=== PATIENT | female | born 1950 | race Caucasian/White ===

== ENCOUNTER 2016-04-20 10:29 | Outpatient (CLI) | payer MEDICARE, BC ==
[2016-04-20 11:26] LABS: ALT (SGPT) 9 U/L (0-55); AST (SGOT) 13 U/L (5-34); Alkaline Phosphatase 49 U/L (40-150); Anion Gap 15 mmol/L (10-20); BUN (Urea Nitrogen) 34 mg/dL (9.8-20.1); Bilirubin, Total 0.6 mg/dL (0.2-1.2); Calc. Creatinine Clearance 0 mL/min (70-130); Calcium 9.2 mg/dL (7.8-10.44); Carbon Dioxide 21 mmol/L (23-31); Chloride 106 mmol/L (98-107); Estimated GFR-MDRD 47; LDL Cholesterol, Calculated 40 mg/dL; Protein, Total 6.8 g/dL (5.8-8.1)
[2016-04-20 11:37] LABS: #Eosinphils 0.1 thou/uL (0.0-0.7); #Lymphocytes 2.2 thou/uL (1.20-3.40); #Monocytes 0.6 thou/uL (0.11-0.59); #Neutrophils 7.2 thou/uL (1.40-6.50); %Basophils 0.4 % (0.0-1.0); %Monocytes 5.9 % (0.0-10.0); Hematocrit 38.1 % (36.0-47.0); Mean Platelet Volume 7.8 fL (7.4-10.4); Red Blood Cell (RBC) Count 4.21 mill/uL (4.20-5.40); White Blood Cell (WBC) Count 10.1 thou/uL (4.8-10.8)
[2016-04-20 18:32] LABS: Microalbumin Urine Less than 1.0 mg/dL (0.5-50.0)
== END 2016-04-20 10:30 | disposition home or self-care (01) ==
LOC: HPCALD 10:29
PROVIDERS: ATTEND Family Medicine
DX: E11.9 Type 2 diabetes mellitus without complications (principal); I10 Essential (primary) hypertension
CPT/HCPCS: 36415; 80053; 80061; 82043; 84443; 85025

== ENCOUNTER 2016-06-28 14:13 | Emergency (ER) | payer MEDICARE, BC ==
[2016-06-28] MEDS ORDERED: Dexamethasone 4 mg/ml Vial ONE ×2 (14:47)
--- NOTE | 2016-06-28 18:09 | RAD ---
CHEST TWO VIEWS 06/28/16 Two views show a normal sized heart and clear lungs. There were no definite signs of pneumonia at th e moment. Comparison with a 05/19/15 study showed no adverse change in the interval. IMPRESSION: No acute thoracic findings. POS: HOME
== END 2016-06-28 15:27 | disposition home or self-care (01) ==
LOC: BURERS 14:13
DX: B34.9 Viral infection, unspecified (principal); I25.10 Atherosclerotic heart disease of native coronary artery without angina pectoris; E11.9 Type 2 diabetes mellitus without complications; I10 Essential (primary) hypertension; Z87.442 Personal history of urinary calculi; Z79.82 Long term (current) use of aspirin; Z79.84 Long term (current) use of oral hypoglycemic drugs; Z79.899 Other long term (current) drug therapy
CPT/HCPCS: 71020; 93005; J1100

== ENCOUNTER 2016-07-17 16:04 | Outpatient (CLI) | payer MEDICARE, BC ==
[2016-07-17 16:23] LABS: #Basophils 0.1 thou/uL (0.0-0.2); #Eosinphils 0.5 thou/uL (0.0-0.7); #Lymphocytes 2.4 thou/uL (1.20-3.40); #Monocytes 0.6 thou/uL (0.11-0.59); #Neutrophils 5.2 thou/uL (1.40-6.50); %Basophils 0.7 % (0.0-1.0); %Eosinophils 5.2 % (0.0-10.0); %Lymphocytes 27.8 % (21.0-51.0); %Monocytes 6.9 % (0.0-10.0); %Neutrophils 59.4 % (42.0-75.0); Hemoglobin 12.7 g/dL (12.0-16.0); Mean Corpuscular HGB CONC 33.3 g/dL (32.0-36.0); Platelet Count 195 thou/uL (130-400); RBC Distribution Width 13.3 % (11.5-14.5); Red Blood Cell (RBC) Count 4.25 mill/uL (4.20-5.40); White Blood Cell (WBC) Count 8.8 thou/uL (4.8-10.8)
[2016-07-17 16:32] LABS: MONO NEGATIVE CONTROL ZONE White (Negative) (White); Mononucleosis NEGATIVE (NEGATIVE)
[2016-07-17 16:33] LABS: MONO POSITIVE CONTROL Pink Line (Positive) (PINK/RED)
[2016-07-17 16:53] LABS: ALT (SGPT) 11 U/L (8-55); AST (SGOT) 17 U/L (5-34); Albumin 3.8 g/dL (3.4-4.8); Alkaline Phosphatase 47 U/L (40-150); Anion Gap 14 mmol/L (10-20); BUN (Urea Nitrogen) 28 mg/dL (9.8-20.1); Bilirubin, Total 0.6 mg/dL (0.2-1.2); Calc. Creatinine Clearance 0 mL/min (70-130); Carbon Dioxide 27 mmol/L (23-31); Chloride 106 mmol/L (98-107); Estimated GFR-MDRD 39; Globulin 2.9 g/dL (2.4-3.5); Glucose 111 mg/dL (80-115); Potassium 4.1 mmol/L (3.5-5.1); Protein, Total 6.7 g/dL (5.8-8.1); Sodium 143 mmol/L (136-145)
--- NOTE | 2016-07-17 21:15 | RAD ---
CHEST TWO VIEWS: Date: 07-17-16 Comparison: 06-28-16 FINDINGS: The heart is normal in size and the lungs are clear. No infiltrate or effusion was seen. The mediast inum was unremarkable and the trachea is midline. Minor degenerative changes are seen in the spine. IMPRESSION: No acute finding. POS: HOME
== END 2016-07-17 16:05 | disposition home or self-care (01) ==
LOC: BURRAD 16:04
PROVIDERS: ATTEND Family Medicine
DX: G93.3 Postviral and related fatigue syndromes (principal)
CPT/HCPCS: 36415; 71020; 80053; 85025; 86308

== ENCOUNTER 2016-07-18 13:32 | Outpatient (CLI) | payer MEDICARE, BC ==
[2016-07-18 14:37] LABS: Bilirubin Negative (Negative); Blood, Urine Negative (Negative); Clarity Clear (Clear); Glucose, Urine (Dipstick) Negative (Negative); Leukocyte Trace (Negative); Nitrite Negative (Negative); Protein, Urine (Dipstick) Negative (Neg-Trace); Urobilinogen 0.2 mg/dL (0.2-1.0); pH, Urine 8.5 (5.0-9.0)
[2016-07-18 14:47] LABS: Bacteria/HPF Rare-Few HPF (None Seen); Crystals/HPF None Seen HPF (Negative); Hyaline Casts/LPF NONE SEEN LPF (0-3 Hyaline); Other Casts/LPF None Seen LPF (0-3 Hyaline); Oval Fat Bodies/HPF None Seen HPF (None Seen); RBC/HPF 0-3 HPF (0-3); Renal Epithelial None Seen HPF (0-3); Sperm/HPF None Seen HPF (None Seen); Squamous Epithelial None Seen HPF (0-3); Transitional Epithelial NONE SEEN HPF (0-3); Trichomonas/HPF None Seen HPF (None Seen); WBC/HPF 0-3 HPF (0-3); Yeast-All Forms None Seen HPF (None Seen)
== END 2016-07-18 13:33 | disposition home or self-care (01) ==
LOC: HPCALD 13:32
PROVIDERS: ATTEND Family Medicine
DX: G93.3 Postviral and related fatigue syndromes (principal)
CPT/HCPCS: 81001; 87086

== ENCOUNTER 2017-02-13 16:14 | Outpatient (CLI) | payer MEDICARE, BC ==
--- NOTE | 2017-02-13 22:37 | RAD ---
RIGHT SHOULDER THREE VIEWS 02/13/17 There is some bony spurring at the greater tubercle of the humeral head where several of the rotator cuff tendons attach. This could be due to prior injury or tendonitis. No acute fracture or dislocatio n was present. The articular surface of the humeral head seems smooth. There may be a little decrease d distance in the acromiohumeral space which could also potentially effect the rotator cuff. The AC j oint shows no widening or off-set. The visible adjacent ribs appeared intact. IMPRESSION: Mild spurring at the greater tubercle. See above. POS: HOME
== END 2017-02-13 16:15 | disposition home or self-care (01) ==
LOC: BURRAD 16:14
PROVIDERS: ATTEND Family Medicine
DX: S46.911A Strain of unspecified muscle, fascia and tendon at shoulder and upper arm level, right arm, initial encounter (principal); M75.81 Other shoulder lesions, right shoulder

== ENCOUNTER 2017-08-14 13:49 | Emergency (ER) | payer MEDICARE, BC ==
[2017-08-14 14:19] LABS: #Basophils 0.1 thou/uL (0.0-0.2); #Eosinphils 0.1 thou/uL (0.0-0.7); #Lymphocytes 2.1 thou/uL (1.20-3.40); #Neutrophils 12.2 thou/uL (1.40-6.50); %Basophils 0.4 % (0.0-1.0); %Eosinophils 0.4 % (0.0-10.0); %Lymphocytes 13.6 % (21.0-51.0); %Monocytes 6.4 % (0.0-10.0); %Neutrophils 79.3 % (42.0-75.0); Hemoglobin 12.7 g/dL (12.0-16.0); Mean Corpuscular HGB CONC 35.2 g/dL (32.0-36.0); Mean Corpuscular Hemoglobin 28.9 pg (27.0-31.0); Mean Corpuscular Volume 82.1 fl (81.0-99.0); Mean Platelet Volume 7.5 fL (7.4-10.4); Platelet Count 256 thou/uL (130-400); RBC Distribution Width 12.5 % (11.5-14.5); Red Blood Cell (RBC) Count 4.39 mill/uL (4.20-5.40); White Blood Cell (WBC) Count 15.4 thou/uL (4.8-10.8)
[2017-08-14 14:35] LABS: ALT (SGPT) 8 U/L (8-55); AST (SGOT) 12 U/L (5-34); Albumin 3.7 g/dL (3.4-4.8); Alkaline Phosphatase 65 U/L (40-150); Anion Gap 17 mmol/L (10-20); BUN (Urea Nitrogen) 44 mg/dL (9.8-20.1); Bilirubin, Total 0.6 mg/dL (0.2-1.2); Calc. Creatinine Clearance 0 mL/min (70-130); Calcium 8.7 mg/dL (7.8-10.44); Chloride 107 mmol/L (98-107); Estimated GFR-MDRD 28; Globulin 3.3 g/dL (2.4-3.5); Glucose 195 mg/dL (80-115); Potassium 4.7 mmol/L (3.5-5.1); Sodium 136 mmol/L (136-145)
[2017-08-14 14:36] LABS: CKMB 0.6 ng/mL (0-6.6); Troponin I Less than 0.010 ng/mL (< 0.028)
[2017-08-14 14:42] LABS: Carbon Dioxide 17 mmol/L (23-31)
--- NOTE | 2017-08-14 18:36 | RAD ---
PORTABLE CHEST 08/14/17 An AP portable film at 1402 is compared with a 06/28/16 study. The heart is normal in size and the lungs are clear. There is no vascular congestion, edema, or pleur al effusion. IMPRESSION: No acute thoracic finding. POS: HOME
== END 2017-08-14 15:27 | disposition short-term general hospital (02) ==
LOC: BURERS 13:49
DX: N17.9 Acute kidney failure, unspecified (principal); I12.9 Hypertensive chronic kidney disease with stage 1 through stage 4 chronic kidney disease, or unspecified chronic kidney disease; E11.22 Type 2 diabetes mellitus with diabetic chronic kidney disease; N18.9 Chronic kidney disease, unspecified; E11.40 Type 2 diabetes mellitus with diabetic neuropathy, unspecified; I25.10 Atherosclerotic heart disease of native coronary artery without angina pectoris; Z79.82 Long term (current) use of aspirin; Z79.84 Long term (current) use of oral hypoglycemic drugs; Z79.899 Other long term (current) drug therapy
CPT/HCPCS: 71045; 80053; 82553; 83880; 84484; 85025; 85379; 93005

== ENCOUNTER 2021-06-09 12:17 | Observation (INO) | payer MEDICARE ==
[2021-06-09] MEDS ORDERED: Ondansetron PF 4 MG/2 ML Vial ONE (12:26)
[2021-06-09 12:58] LABS: #Eosinphils 0.1 thou/uL (0.0-0.7); #Monocytes 0.4 thou/uL (0.11-0.59); #Neutrophils 5.1 thou/uL (1.40-6.50); %Basophils 0.7 % (0.0-1.0); %Eosinophils 2.1 % (0.0-10.0); %Lymphocytes 14.6 % (21.0-51.0); %Monocytes 5.5 % (0.0-10.0); %Neutrophils 77.2 % (42.0-75.0); Hemoglobin 10.4 g/dL (12.0-16.0); Mean Corpuscular HGB CONC 33.6 g/dL (32.0-36.0); Mean Corpuscular Hemoglobin 31.2 pg (27.0-31.0); Platelet Count 185 thou/uL (130-400); RBC Distribution Width 13.3 % (11.5-14.5); Red Blood Cell (RBC) Count 3.31 mill/uL (4.20-5.40); White Blood Cell (WBC) Count 6.6 thou/uL (4.8-10.8)
[2021-06-09 13:11] LABS: ALT (SGPT) 11 U/L (8-55); AST (SGOT) 14 U/L (5-34); Albumin 3.6 g/dL (3.4-4.8); Alkaline Phosphatase 67 U/L (40-110); Anion Gap 20 mmol/L (10-20); BUN (Urea Nitrogen) 31 mg/dL (9.8-20.1); Bilirubin, Total 0.5 mg/dL (0.2-1.2); Calc. Creatinine Clearance 0 mL/min (70-130); Calcium 8.7 mg/dL (7.8-10.44); Carbon Dioxide 16 mmol/L (23-31); Chloride 107 mmol/L (98-107); Globulin 3.1 g/dL (2.4-3.5); Glucose 138 mg/dL (83-110); Lipase 39 U/L (8-78); Potassium 3.9 mmol/L (3.5-5.1); Protein, Total 6.7 g/dL (5.8-8.1); Sodium 139 mmol/L (136-145)
[2021-06-09 15:04] LABS: Bilirubin Negative (Negative); Blood, Urine Trace (Negative); Clarity Clear (Clear); Glucose, Urine (Dipstick) Negative (Negative); Ketone, Urine Trace mg/dL (Negative); Leukocyte Small (Negative); Nitrite Negative (Negative); Protein, Urine (Dipstick) 30 mg/dL (Neg-Trace); Urobilinogen 0.2 mg/dL (Less than 2)
[2021-06-09 15:13] LABS: RBC/HPF 0-3 HPF (0-3)
[2021-06-09 15:14] LABS: Bacteria/HPF Rare-Few HPF (None Seen); Squamous Epithelial 0-3 HPF (0-3)
[2021-06-09] MEDS ORDERED: Acetaminophen 650 MG Suppository PR PRN (16:54)
[2021-06-09] MEDS: Sodium Chloride 0.9% 1,000 ML IV SCH (17:16)
[2021-06-09 18:38] VITALS: BMI 39.6
[2021-06-09] MEDS: Gabapentin 300 MG CAP PO SCH (20:54)
[2021-06-09] MEDS ORDERED: Calcium Carbonate 600 MG + Vit D TAB PO SCH (21:00)
[2021-06-09] MEDS: GLUCOSAMINE HCL 1500 MG PO SCH (21:00)
[2021-06-10] MEDS: Sodium Chloride 0.9% 1,000 ML IV SCH ×2 (00:09→19:41)
[2021-06-10] MEDS: Levothyroxine Sodium 50 MCG TAB PO SCH (06:09)
[2021-06-10] MEDS ORDERED: Atorvastatin Calcium 40 MG TAB PO SCH (09:00)
[2021-06-10] MEDS ORDERED: Hydrochlorothiazide 25 MG TAB PO SCH (09:00)
[2021-06-10] MEDS ORDERED: Losartan 25 MG TAB PO SCH (09:00)
[2021-06-10] MEDS ORDERED: cloNIDine 0.1 MG TAB PO PRN (09:55)
[2021-06-10] MEDS: Aspirin 325 MG TAB PO SCH (10:33)
[2021-06-10] MEDS: Pioglitazone HCl 15 MG TAB PO SCH (10:34)
[2021-06-10] MEDS: metFORMIN 500 MG TAB PO SCH ×2 (10:34→17:00)
[2021-06-10] MEDS: Calcium Carbonate 600 MG + Vit D TAB PO SCH ×2 (10:36→19:41)
[2021-06-10] MEDS: Amlodipine 5 MG TAB PO SCH (10:36)
[2021-06-10] MEDS: Venlafaxine HCl XR 75 MG CAP PO SCH (10:38)
[2021-06-10] MEDS: Polyethylene Glycol 3350 17 GM Packet PO SCH (10:39)
[2021-06-10] MEDS: GLUCOSAMINE HCL 1500 MG PO SCH ×2 (10:39→21:10)
[2021-06-10] MEDS: Acetaminophen 325 MG TAB PO PRN (12:20)
[2021-06-10] MEDS: Gabapentin 300 MG CAP PO SCH (21:09)
[2021-06-10] MEDS: Atorvastatin Calcium 10 MG TAB PO SCH (21:09)
[2021-06-11] MEDS: Levothyroxine Sodium 50 MCG TAB PO SCH (05:17)
[2021-06-11] MEDS: Aspirin 325 MG TAB PO SCH (08:23)
[2021-06-11] MEDS: Calcium Carbonate 600 MG + Vit D TAB PO SCH ×2 (08:23→17:40)
[2021-06-11] MEDS: metFORMIN 500 MG TAB PO SCH ×2 (08:23→17:40)
[2021-06-11] MEDS: Polyethylene Glycol 3350 17 GM Packet PO SCH (08:23)
[2021-06-11] MEDS ORDERED: Losartan Potassium 50 MG TAB PO SCH (09:00)
[2021-06-11] MEDS ORDERED: Losartan 25 MG TAB PO SCH (09:30)
[2021-06-11] MEDS: Amlodipine 5 MG TAB PO SCH (11:56)
[2021-06-11] MEDS: Venlafaxine HCl XR 75 MG CAP PO SCH (11:56)
[2021-06-11] MEDS: Pioglitazone HCl 15 MG TAB PO SCH (11:57)
[2021-06-11] MEDS: Acetaminophen 325 MG TAB PO PRN (11:57)
[2021-06-11] MEDS: GLUCOSAMINE HCL 1500 MG PO SCH ×2 (17:29→22:09)
[2021-06-11] MEDS: Gabapentin 300 MG CAP PO SCH (22:08)
[2021-06-11] MEDS: Atorvastatin Calcium 10 MG TAB PO SCH (22:09)
[2021-06-12] MEDS: Levothyroxine Sodium 50 MCG TAB PO SCH (05:20)
[2021-06-12 05:40] LABS: Anion Gap 17 mmol/L (10-20); BUN (Urea Nitrogen) 28 mg/dL (9.8-20.1); Calc. Creatinine Clearance 33 mL/min (70-130); Calcium 9.6 mg/dL (7.8-10.44); Carbon Dioxide 22 mmol/L (23-31); Chloride 107 mmol/L (98-107); Glucose 81 mg/dL (83-110); Potassium 4.6 mmol/L (3.5-5.1); Sodium 141 mmol/L (136-145)
[2021-06-12 05:46] LABS: #Basophils 0.1 thou/uL (0.0-0.2); #Eosinphils 0.5 thou/uL (0.0-0.7); #Lymphocytes 2.1 thou/uL (1.20-3.40); #Monocytes 0.5 thou/uL (0.11-0.59); #Neutrophils 4.4 thou/uL (1.40-6.50); %Basophils 0.9 % (0.0-1.0); %Eosinophils 6.5 % (0.0-10.0); %Lymphocytes 27.6 % (21.0-51.0); Hemoglobin 10.2 g/dL (12.0-16.0); Mean Corpuscular HGB CONC 32.7 g/dL (32.0-36.0); Mean Corpuscular Hemoglobin 31.5 pg (27.0-31.0); Mean Corpuscular Volume 96.2 fL (78.0-98.0); Mean Platelet Volume 6.7 fL (7.4-10.4); Platelet Count 188 thou/uL (130-400); RBC Distribution Width 13.9 % (11.5-14.5); Red Blood Cell (RBC) Count 3.24 mill/uL (4.20-5.40); White Blood Cell (WBC) Count 7.5 thou/uL (4.8-10.8)
[2021-06-12] MEDS: metFORMIN 500 MG TAB PO SCH (09:53)
[2021-06-12] MEDS: Amlodipine 5 MG TAB PO SCH (09:53)
[2021-06-12] MEDS: Calcium Carbonate 600 MG + Vit D TAB PO SCH ×2 (09:53→17:43)
[2021-06-12] MEDS: Venlafaxine HCl XR 75 MG CAP PO SCH (09:53)
[2021-06-12] MEDS: Aspirin 325 MG TAB PO SCH (09:54)
[2021-06-12] MEDS: Acetaminophen 325 MG TAB PO PRN ×2 (09:54→17:42)
[2021-06-12] MEDS: Pioglitazone HCl 15 MG TAB PO SCH (09:54)
[2021-06-12] MEDS: Polyethylene Glycol 3350 17 GM Packet PO SCH (09:55)
[2021-06-12] MEDS: Losartan 25 MG TAB PO SCH (10:01)
[2021-06-12 14:38] LABS: Hemoglobin A1c 4.9 % (4.0-6.0)
[2021-06-12] MEDS: GLUCOSAMINE HCL 1500 MG PO SCH ×2 (17:03→20:52)
[2021-06-12] MEDS: Gabapentin 300 MG CAP PO SCH (20:45)
[2021-06-12] MEDS: Atorvastatin Calcium 10 MG TAB PO SCH (20:46)
[2021-06-13] MEDS: Levothyroxine Sodium 50 MCG TAB PO SCH (05:40)
[2021-06-13] MEDS: Polyethylene Glycol 3350 17 GM Packet PO SCH (09:31)
[2021-06-13] MEDS: Losartan 25 MG TAB PO SCH (09:32)
[2021-06-13] MEDS: Venlafaxine HCl XR 75 MG CAP PO SCH (09:32)
[2021-06-13] MEDS: Calcium Carbonate 600 MG + Vit D TAB PO SCH ×2 (09:32→17:09)
[2021-06-13] MEDS: Amlodipine 5 MG TAB PO SCH (09:32)
[2021-06-13] MEDS: Pioglitazone HCl 15 MG TAB PO SCH (09:33)
[2021-06-13] MEDS: Aspirin 325 MG TAB PO SCH (09:33)
[2021-06-13] MEDS: GLUCOSAMINE HCL 1500 MG PO SCH ×2 (09:35→20:45)
[2021-06-13] MEDS: Acetaminophen 325 MG TAB PO PRN ×2 (09:38→17:09)
[2021-06-13 18:19] VITALS: BP 145/59; TEMP 98.6
[2021-06-13] MEDS: Gabapentin 300 MG CAP PO SCH (20:30)
[2021-06-13] MEDS: Atorvastatin Calcium 10 MG TAB PO SCH (20:30)
== END 2021-06-13 20:52 | disposition critical access hospital (66) ==
LOC: BURERS 12:17 → INTOOBSV 14:53 → BURMED 14:53
PROVIDERS: ADMIT Family Medicine; ATTEND Family Medicine
DX: S06.0X1A Concussion with loss of consciousness of 30 minutes or less, initial encounter (principal); R11.2 Nausea with vomiting, unspecified; E86.0 Dehydration; E11.65 Type 2 diabetes mellitus with hyperglycemia; G89.29 Other chronic pain; M54.50 Low back pain, unspecified; S32.010D Wedge compression fracture of first lumbar vertebra, subsequent encounter for fracture with routine healing; I12.9 Hypertensive chronic kidney disease with stage 1 through stage 4 chronic kidney disease, or unspecified chronic kidney disease; E11.22 Type 2 diabetes mellitus with diabetic chronic kidney disease; E11.42 Type 2 diabetes mellitus with diabetic polyneuropathy; N18.4 Chronic kidney disease, stage 4 (severe); I25.10 Atherosclerotic heart disease of native coronary artery without angina pectoris; G47.33 Obstructive sleep apnea (adult) (pediatric); K21.9 Gastro-esophageal reflux disease without esophagitis; Z79.82 Long term (current) use of aspirin; Z79.84 Long term (current) use of oral hypoglycemic drugs; Z79.890 Hormone replacement therapy; Z79.899 Other long term (current) drug therapy; Z88.1 Allergy status to other antibiotic agents; Z88.5 Allergy status to narcotic agent; Z95.5 Presence of coronary angioplasty implant and graft
CPT/HCPCS: 36415; 70450; 74176; 80048; 80053; 81003; 81015; 83036; 83605; 83690; 84484; 85025; 93005; 94760; 96374; G0378; J2405; J7050; U0003; U0005

== ENCOUNTER 2021-06-13 17:40 | Inpatient (IN) | payer MEDICARE ==
[2021-06-13 21:52] VITALS: BMI 39.6
[2021-06-13] MEDS ORDERED: cloNIDine 0.1 MG TAB PO PRN (22:06)
[2021-06-14] MEDS: Levothyroxine Sodium 25 MCG TAB PO SCH (05:58)
[2021-06-14] MEDS: Pioglitazone HCl 15 MG TAB PO SCH (08:10)
[2021-06-14] MEDS: Venlafaxine HCl XR 75 MG CAP PO SCH (08:10)
[2021-06-14] MEDS: Aspirin 325 MG TAB PO SCH (08:11)
[2021-06-14] MEDS: Atorvastatin Calcium 10 MG TAB PO SCH (08:11)
[2021-06-14] MEDS: Calcium Carbonate 600 MG + Vit D TAB PO SCH ×2 (08:11→20:24)
[2021-06-14] MEDS: Amlodipine 5 MG TAB PO SCH (08:14)
[2021-06-14] MEDS: GLUCOSAMINE HCL 1500 MG PO SCH ×2 (14:46→20:27)
[2021-06-14] MEDS: Polyethylene Glycol 3350 17 GM Packet PO SCH (14:46)
[2021-06-14] MEDS: Gabapentin 300 MG CAP PO SCH (20:24)
[2021-06-15] MEDS: Levothyroxine Sodium 25 MCG TAB PO SCH (05:18)
[2021-06-15] MEDS: Aspirin 325 MG TAB PO SCH (10:01)
[2021-06-15] MEDS: Pioglitazone HCl 15 MG TAB PO SCH (10:02)
[2021-06-15] MEDS: Losartan 25 MG TAB PO SCH (10:02)
[2021-06-15] MEDS: Venlafaxine HCl XR 75 MG CAP PO SCH (10:02)
[2021-06-15] MEDS: Calcium Carbonate 600 MG + Vit D TAB PO SCH ×2 (10:02→21:11)
[2021-06-15] MEDS: Atorvastatin Calcium 10 MG TAB PO SCH (10:03)
[2021-06-15] MEDS: Amlodipine 5 MG TAB PO SCH (10:03)
[2021-06-15] MEDS: GLUCOSAMINE HCL 1500 MG PO SCH ×2 (10:04→21:07)
[2021-06-15] MEDS: Polyethylene Glycol 3350 17 GM Packet PO SCH (10:04)
[2021-06-15] MEDS: Gabapentin 300 MG CAP PO SCH (21:11)
[2021-06-16] MEDS: Levothyroxine Sodium 25 MCG TAB PO SCH (05:11)
[2021-06-16] MEDS: Aspirin 325 MG TAB PO SCH (10:34)
[2021-06-16] MEDS: Venlafaxine HCl XR 75 MG CAP PO SCH (10:34)
[2021-06-16] MEDS: Polyethylene Glycol 3350 17 GM Packet PO SCH (10:34)
[2021-06-16] MEDS: Pioglitazone HCl 15 MG TAB PO SCH (10:34)
[2021-06-16] MEDS: Atorvastatin Calcium 10 MG TAB PO SCH (10:35)
[2021-06-16] MEDS: Amlodipine 5 MG TAB PO SCH (10:35)
[2021-06-16] MEDS: Losartan 25 MG TAB PO SCH (10:35)
[2021-06-16] MEDS: Calcium Carbonate 600 MG + Vit D TAB PO SCH ×2 (10:35→21:29)
[2021-06-16] MEDS: GLUCOSAMINE HCL 1500 MG PO SCH ×2 (10:36→21:29)
[2021-06-16 15:54] LABS: SARS-CoV-2 PCR by NAA Not Detected (NotDetected)
[2021-06-16] MEDS: Gabapentin 300 MG CAP PO SCH (21:27)
[2021-06-17] MEDS: Levothyroxine Sodium 25 MCG TAB PO SCH (05:14)
[2021-06-17] MEDS: Atorvastatin Calcium 10 MG TAB PO SCH (09:07)
[2021-06-17] MEDS: Aspirin 325 MG TAB PO SCH (09:07)
[2021-06-17] MEDS: Amlodipine 5 MG TAB PO SCH (09:07)
[2021-06-17] MEDS: Venlafaxine HCl XR 75 MG CAP PO SCH (09:08)
[2021-06-17] MEDS: Pioglitazone HCl 15 MG TAB PO SCH (09:08)
[2021-06-17] MEDS: Acetaminophen 325 MG TAB PO PRN (09:09)
[2021-06-17] MEDS: Losartan 25 MG TAB PO SCH (09:09)
[2021-06-17] MEDS: Calcium Carbonate 600 MG + Vit D TAB PO SCH ×2 (09:10→21:33)
[2021-06-17] MEDS: Polyethylene Glycol 3350 17 GM Packet PO SCH (09:11)
[2021-06-17] MEDS: GLUCOSAMINE HCL 1500 MG PO SCH ×2 (09:14→21:47)
[2021-06-17] MEDS: Gabapentin 300 MG CAP PO SCH (21:33)
[2021-06-18] MEDS: Levothyroxine Sodium 25 MCG TAB PO SCH (06:10)
[2021-06-18] MEDS ORDERED: Dextrose 50% Abboject 50 ML SYRINGE ONE (07:10)
[2021-06-18] MEDS: Pioglitazone HCl 15 MG TAB PO SCH (09:16)
[2021-06-18] MEDS: Atorvastatin Calcium 10 MG TAB PO SCH (09:16)
[2021-06-18] MEDS: Amlodipine 5 MG TAB PO SCH (09:16)
[2021-06-18] MEDS: Polyethylene Glycol 3350 17 GM Packet PO SCH (09:16)
[2021-06-18] MEDS: Losartan 25 MG TAB PO SCH (09:18)
[2021-06-18] MEDS: Venlafaxine HCl XR 75 MG CAP PO SCH (09:18)
[2021-06-18] MEDS: Aspirin 325 MG TAB PO SCH (09:20)
[2021-06-18] MEDS: GLUCOSAMINE HCL 1500 MG PO SCH ×2 (09:21→22:39)
[2021-06-18] MEDS: Acetaminophen 325 MG TAB PO PRN (09:22)
[2021-06-18] MEDS: Calcium Carbonate 600 MG + Vit D TAB PO SCH ×2 (09:22→22:37)
[2021-06-18] MEDS: Gabapentin 300 MG CAP PO SCH (22:37)
[2021-06-19] MEDS: Levothyroxine Sodium 25 MCG TAB PO SCH (05:40)
[2021-06-19] MEDS: Aspirin 325 MG TAB PO SCH (08:04)
[2021-06-19] MEDS: Amlodipine 5 MG TAB PO SCH (08:04)
[2021-06-19] MEDS: Venlafaxine HCl XR 75 MG CAP PO SCH (08:04)
[2021-06-19] MEDS: Atorvastatin Calcium 10 MG TAB PO SCH (08:04)
[2021-06-19] MEDS: Losartan 25 MG TAB PO SCH (08:04)
[2021-06-19] MEDS: Pioglitazone HCl 15 MG TAB PO SCH (08:05)
[2021-06-19] MEDS: Calcium Carbonate 600 MG + Vit D TAB PO SCH ×2 (08:05→21:29)
[2021-06-19] MEDS: Acetaminophen 325 MG TAB PO PRN (08:14)
[2021-06-19] MEDS: Polyethylene Glycol 3350 17 GM Packet PO SCH ×2 (09:30→21:28)
[2021-06-19] MEDS: GLUCOSAMINE HCL 1500 MG PO SCH ×2 (11:35→21:30)
[2021-06-19] MEDS ORDERED: Nystatin Powder 15 GM BOT TOP SCH (21:15)
[2021-06-19] MEDS: Gabapentin 300 MG CAP PO SCH (21:29)
[2021-06-20] MEDS: Levothyroxine Sodium 25 MCG TAB PO SCH (06:22)
[2021-06-20] MEDS: Losartan 25 MG TAB PO SCH (11:21)
[2021-06-20] MEDS: Venlafaxine HCl XR 75 MG CAP PO SCH (11:21)
[2021-06-20] MEDS: Calcium Carbonate 600 MG + Vit D TAB PO SCH ×2 (11:22→21:12)
[2021-06-20] MEDS: Atorvastatin Calcium 10 MG TAB PO SCH (11:22)
[2021-06-20] MEDS: Aspirin 325 MG TAB PO SCH (11:22)
[2021-06-20] MEDS: Pioglitazone HCl 15 MG TAB PO SCH (11:22)
[2021-06-20] MEDS: Polyethylene Glycol 3350 17 GM Packet PO SCH ×3 (11:23→21:44)
[2021-06-20] MEDS: GLUCOSAMINE HCL 1500 MG PO SCH ×2 (11:23→21:00)
[2021-06-20] MEDS: Nystatin Powder 15 GM BOT TOP SCH (11:23)
[2021-06-20] MEDS: Amlodipine 5 MG TAB PO SCH (11:39)
[2021-06-20] MEDS: Acetaminophen 325 MG TAB PO PRN (16:40)
[2021-06-20] MEDS: Gabapentin 300 MG CAP PO SCH (21:11)
[2021-06-21] MEDS: Levothyroxine Sodium 25 MCG TAB PO SCH (05:28)
[2021-06-21 05:58] VITALS: BP 103/43; TEMP 97.9
[2021-06-21] MEDS: Amlodipine 5 MG TAB PO SCH (10:20)
[2021-06-21] MEDS: Losartan 25 MG TAB PO SCH (10:20)
[2021-06-21] MEDS: Polyethylene Glycol 3350 17 GM Packet PO SCH (10:20)
[2021-06-21] MEDS: Venlafaxine HCl XR 75 MG CAP PO SCH (10:20)
[2021-06-21] MEDS: Pioglitazone HCl 15 MG TAB PO SCH (10:21)
[2021-06-21] MEDS: Atorvastatin Calcium 10 MG TAB PO SCH (10:21)
[2021-06-21] MEDS: Aspirin 325 MG TAB PO SCH (10:22)
[2021-06-21] MEDS: Calcium Carbonate 600 MG + Vit D TAB PO SCH (10:22)
[2021-06-21] MEDS: GLUCOSAMINE HCL 1500 MG PO SCH (10:23)
[2021-06-21] MEDS: Nystatin Powder 15 GM BOT TOP SCH (10:23)
== END 2021-06-21 12:00 | disposition home health service (06) | DRG 560 ==
LOC: BURMED 20:59
PROVIDERS: ADMIT Family Medicine; ATTEND Family Medicine
DX: S32.010D Wedge compression fracture of first lumbar vertebra, subsequent encounter for fracture with routine healing (principal); N18.4 Chronic kidney disease, stage 4 (severe); R53.1 Weakness; I25.10 Atherosclerotic heart disease of native coronary artery without angina pectoris; G47.33 Obstructive sleep apnea (adult) (pediatric); E78.5 Hyperlipidemia, unspecified; M19.90 Unspecified osteoarthritis, unspecified site; K21.9 Gastro-esophageal reflux disease without esophagitis; Z20.822 Contact with and (suspected) exposure to COVID-19; I12.9 Hypertensive chronic kidney disease with stage 1 through stage 4 chronic kidney disease, or unspecified chronic kidney disease; E11.22 Type 2 diabetes mellitus with diabetic chronic kidney disease; E11.65 Type 2 diabetes mellitus with hyperglycemia; E11.42 Type 2 diabetes mellitus with diabetic polyneuropathy; W01.0XXD Fall on same level from slipping, tripping and stumbling without subsequent striking against object, subsequent encounter; G89.29 Other chronic pain; S06.0X1D Concussion with loss of consciousness of 30 minutes or less, subsequent encounter; Z88.5 Allergy status to narcotic agent; Z88.1 Allergy status to other antibiotic agents; Z88.8 Allergy status to other drugs, medicaments and biological substances; Z79.84 Long term (current) use of oral hypoglycemic drugs; Z79.82 Long term (current) use of aspirin; Z79.899 Other long term (current) drug therapy; Z95.5 Presence of coronary angioplasty implant and graft; Z90.710 Acquired absence of both cervix and uterus; Z98.890 Other specified postprocedural states; Z87.891 Personal history of nicotine dependence
CPT/HCPCS: U0003; U0005

== ENCOUNTER 2022-01-18 11:23 | Emergency (ER) | payer MEDICARE ==
[2022-01-18 12:06] LABS: #Basophils 0.1 thou/uL (0.0-0.2); #Eosinphils 0.4 thou/uL (0.0-0.7); #Lymphocytes 1.7 thou/uL (1.20-3.40); #Monocytes 0.4 thou/uL (0.11-0.59); #Neutrophils 2.6 thou/uL (1.40-6.50); %Basophils 1.2 % (0.0-1.0); %Eosinophils 7.5 % (0.0-10.0); %Lymphocytes 33.4 % (21.0-51.0); %Monocytes 7.2 % (0.0-10.0); %Neutrophils 50.7 % (42.0-75.0); Hemoglobin 10.5 g/dL (12.0-16.0); Mean Corpuscular HGB CONC 31.9 g/dL (32.0-36.0); Mean Corpuscular Hemoglobin 29.8 pg (27.0-31.0); Mean Corpuscular Volume 93.6 fl (78.0-98.0); Mean Platelet Volume 7.6 fL (7.4-10.4); Platelet Count 182 10x3/uL (130-400); RBC Distribution Width 12.8 % (11.5-14.5); Red Blood Cell (RBC) Count 3.52 mill/uL (4.20-5.40); White Blood Cell (WBC) Count 5.1 10x3/uL (4.8-10.8)
[2022-01-18 12:12] LABS: ALT (SGPT) 9 U/L (8-55); AST (SGOT) 15 U/L (5-34); Albumin 3.6 g/dL (3.4-4.8); Alkaline Phosphatase 67 U/L (40-110); Anion Gap 16 mmol/L (10-20); BUN (Urea Nitrogen) 41 mg/dL (9.8-20.1); Bilirubin, Total 0.4 mg/dL (0.2-1.2); Calc. Creatinine Clearance 0 mL/min (70-130); Calcium 8.9 mg/dL (7.8-10.44); Carbon Dioxide 18 mmol/L (23-31); Chloride 110 mmol/L (98-107); Estimated GFR 17; Globulin 3.3 g/dL (2.4-3.5); Glucose 105 mg/dL (83-110); Magnesium 1.5 mg/dL (1.6-2.6); Protein, Total 6.9 g/dL (5.8-8.1); Sodium 139 mmol/L (136-145)
== END 2022-01-18 12:35 | disposition home or self-care (01) ==
LOC: BURERS 11:23
DX: E11.22 Type 2 diabetes mellitus with diabetic chronic kidney disease (principal); I12.9 Hypertensive chronic kidney disease with stage 1 through stage 4 chronic kidney disease, or unspecified chronic kidney disease; N18.9 Chronic kidney disease, unspecified; I25.10 Atherosclerotic heart disease of native coronary artery without angina pectoris; E83.42 Hypomagnesemia; E78.5 Hyperlipidemia, unspecified
CPT/HCPCS: 80053; 83735; 85025; 93005